=== PATIENT | male | born 1985 | race Caucasian/White ===

== ENCOUNTER 2017-07-18 10:02 | Emergency (ER) | payer OTHER ==
[2017-07-18 11:10] LABS: Hep C IgG Ab Non-Reactive (NonReactive); Hep C Index 0.12 S/CO (0-0.79)
[2017-07-18 11:11] LABS: HIV (1/2) Antibody/Antigen Non-Reactive (NonReactive); HIV 1/2 INDEX 0.17 S/CO (<1.00)
[2017-07-18 11:56] LABS: HBSAB Concentration 879.06 mIU/mL; Hep B Surf AB Reactive (NonReactive)
== END 2017-07-18 10:30 | disposition home or self-care (01) ==
LOC: ERS 10:02
DX: Z77.21 Contact with and (suspected) exposure to potentially hazardous body fluids (principal); S60.411A Abrasion of left index finger, initial encounter; W26.8XXA Contact with other sharp object(s), not elsewhere classified, initial encounter
CPT/HCPCS: 36415; 86706; 86803; 87389; 99283